=== PATIENT | female | born 1975 | race Caucasian/White ===

== ENCOUNTER 2021-10-23 17:19 | Emergency (ER) | payer OTHER ==
[~2021-10-23] VITALS: Ht 172.7 cm; Wt 81.0 kg
[2021-10-23 18:00] VITALS: BP 135/78
[2021-10-23] MEDS ORDERED: LIDOCAINE 1%/EPI 1:100,000 20 ML VIAL. IJ ONE (18:15)
[2021-10-23] MEDS ORDERED: IBUPROFEN 600 MG TABLET. PO ONE (18:30)
[2021-10-23] MEDS ORDERED: ACETAMINOPHEN 500 MG TABLET PO ONE (18:30)
[2021-10-23] MEDS ORDERED: DIPH,PERTUSS(ACELL),TET VAC/PF 0.5 ML SYRINGE. VAX IM ONE (18:30)
--- NOTE | 2021-10-23 18:40 | PHYS DOC ---
Past History Past Medical History: No Pertinent History (NEMESIO HAINES APRN) Past Surgical History: No Surgical History (NEMESIO HAINES APRN) Alcohol Use: Rarely Drug Use: None (NEMESIO HAINES APRN) Adult General Chief Complaint Chief Complaint: LACERATION/AVULSION HPI HPI Patient is a 46-year-old female who presents to the emergency department reporting she incidentally head butted a horse and suffered a laceration to the right side of her head. Patient reports this happened approximately 1730 today. Patient reports her last tetanus immunization was greater than 5 years ago. Denies loss of consciousness, denies dizziness, syncopal or near syncopal epis odes. Patient denies head or neck pain. Patient denies visual disturbances. Patient denies other physical complaints or physical concerns. (NEMESIO HAINES APRN) Review of Systems Review of Systems 14 body systems of review of systems have been reviewed. See HPI for pertinent positives and negative responses, otherwise all other systems are negative, nonpertinent or noncontributory. Constitutional: Negative except as outlined in HPI above. Skin: Negative except as outlined in HPI above. Eyes: Negative except as outlined in HPI above. HENT: Negative except as outlined in HPI above. Respiratory: Negative except as outlined in HPI above. Cardiovascular: Negative except as outlined in HPI above. GI: Negative except as outlined in HPI above. : Negative except as outlined in HPI above. Musculoskeletal: Negative except as outlined in HPI above. Integument: Negative except as outlined in HPI above. Neurologic: Negative except as outlined in HPI above. Endocrine: Negative except as outlined in HPI above. Lymphatic: Negative except as outlined in HPI above. Psychiatric: Negative except as outlined in HPI above. (NEMESIO HAINES APRN) Current Medications Current Medications Current Medications Medications (Trade) Dose Ordered Sig/Juliana Start Time Stop Time Status Last Admin Dose Admin Acetaminophen (Tylenol) 1,000 mg 1X ONCE 10/23/21 18:30 10/23/21 18:31 UNV Diphtheria/ Pertussis/Tetanus Vacc (ADACEL TDap SYRINGE) 0.5 ml ONCE ONCE 10/23/21 18:30 10/23/21 18:31 UNV Ibuprofen (Motrin) 600 mg 1X ONCE 10/23/21 18:30 10/23/21 18:31 UNV Lidocaine/ Epinephrine (Xylocaine 1%-Epi 1:100,000) 20 ml 1X ONCE 10/23/21 18:15 10/23/21 18:25 DC (NEMESIO HAINES APRN) Allergies Allergies Allergies Coded Allergies Type Severity Reaction Last Updated Verified NSAIDS (Non-Steroidal Anti-Inflamma Allergy Severe 10/23/21 Yes (NEMESIO HAINES APRN) Physical Exam Physical Exam Constitutional: Well developed, well nourished, no acute distress, non-toxic appearance. 46-year-old female in no apparent distress. HENT: Normocephalic, no gamez sign, no raccoon eyes, there is a 3 cm laceration to the right parietal scalp, bleeding is controlled, minor contusion. Bilateral TMs patent, intact, within normal limits. No malocclusion, no drooling, no trismus. Eyes: Conjunctiva normal, no discharge. Neck: Normal range of motion, no stridor. No midline spinal tenderness, full range of motion without tenderness. Cardiovascular: No cyanosis appreciated, distal cap refill less than 2 seconds. Lungs & Thorax: Patient is in no respiratory distress, no audible adventitious lung sounds appreciated. Abdomen: Nontender, no abnormalities noted. Skin: Warm, dry, no erythema, no rash. Back: No tenderness, no deformities. Extremities: No tenderness, no cyanosis, no clubbing, ROM intact, no edema. Neurologic: Alert and oriented X 3, normal motor function, normal sensory function, no focal deficits noted. Psychologic: Affect normal, judgement normal, mood normal. (NEMESIO HAINES APRN) Current Patient Data Vital Signs Vital Signs Date Time Temp Pulse Resp B/P (MAP) Pulse Ox O2 Delivery O2 Flow Rate FiO2 10/23/21 18:00 98.2 78 16 135/78 (97) 99 (NEMESIO HAINES APRN) EKG EKG [] (NEMESIO HAINES APRN) Radiology/Procedures Radiology/Procedures [] (NEMESIO HAINES APRN) Heart Score C/O Chest Pain: No Risk Factors: Risk Factors: DM, Current or recent (<one month) smoker, HTN, HLP, family history of CAD, obesity. Risk Scores: Risk Factors: DM, Current or recent (<one month) smoker, HTN, HLP, family history of CAD, obesity. (NEMESIO HAINES APRN) Course & Med Decision Making Course & Med Decision Making Pertinent Labs and Imaging studies reviewed. (See chart for details) 46-year-old female, vital signs reviewed, presents emerged from concerning scalp laceration after head butting her young horse by accident at approximately 1730 today. Pain is tetanus immunization is not up-to-date, will bring up-to-date today in the emergency department with Adacel/Tdap. See laceration repair note. Will apply ice pack, Tylenol for pain. Discussed with patient suture care and removal in 7 to 10 days. Return to ER precautions or concerns, follow-up with primary care for suture removal, patient gave verbal understanding of and is amenable to ED discharge planning. Discussed with the patient all findings and diagnostic testing as well as the need to follow-up with their primary care provider for further evaluation and treatment or return to the ED if any new or worsening symptoms. Strict return precautions were also discussed at length, the patient voiced understanding and agreement with the discharge planning. The patient was nontoxic in appearance, in no apparent distress, and hemodynamically stable at the time of disposition. (NEMESIO HAINES APRN) Dragon Disclaimer Dragon Disclaimer This electronic medical record was generated, in whole or in part, using a voice recognition dictation system. (NEMESIO HAINES APRN) Laceration Repair Lac Repair Indication: Scalp laceration Time: 1840 Confirmed: Patient, procedure, side, and site correct. Consent: Patient, has given verbal consent. Description/repair Procedure: The patient was placed in the appropriate position and anesthesia around the achieved with 4 cc 1% lidocaine with epinephrine . The area was then cleansed with Betadine solution. The laceration was vigorously irrigated with 500 cc normal saline, explored for foreign bodies or debris, no foreign bodies or debris appreciated. The laceration was then closed with 3 dermal christoph, the wound area was then dressed with bacitracin. Complexity: Single layer. Post procedure exam: Circulation, motor, sensory examination intact, bleeding controlled. Total repaired wound length: 3 cm. Other Items: The patient tolerated the procedure well. Complications: There were no complications. Performed by: Self, Nemesio Haines, CLASSIFICATION CLERK-C Supervision: Dr. Dubose was present for consult regarding the critical aspects of the procedure including closure and post procedure exam. Total time: 10 minutes. (NEMESIO HAINES APRN) Departure Departure: Impression: Primary Impression: Scalp laceration Additional Impression: Need for Tdap vaccination Disposition: HOME / SELF CARE / HOMELESS Condition: GOOD Referrals: KATRINA CARLISLE (PCP) Patient Instructions: Laceration Care, Adult, Staple Wound Closure, [id number] Additional Instructions: You were seen here in the emergency department today for a laceration of your scalp after bumping heads with your horse. Your tetanus immunization was brought up-to-date today in the emergency department with a medication called Adacel Tdap, please update your immunization records accordingly. You have 3 christoph closing your laceration, keep clean and dry, you may apply antibiotic ointment daily, you may take daily showers and cleanse with soap and water, please have these christoph removed in 7 to 10 days, you may call your primary care physician Dr. Katrina Carlisle for an appointment to have staple removal, please watch for signs and symptoms of infection, return to the emergency department for worsening symptoms or other concerns. You may use Tylenol for discomfort. Thank you for visiting our Emergency Department. It was a pleasure taking care of you today in the emergency department and we appreciate you trusting us with your care. If any additional problems come up don't hesitate to return to visit us. Please follow up with your primary care provider so they can plan additional care if needed and know about the problem that you had. If symptoms worsen come back to the Emergency Department. Any concerning symptoms that start such as chest pain, shortness of air, weakness or numbness on one s jorge of the body, running high fevers or any other concerning symptoms return to the ER. Attending Signature Attending Signature I have participated in the care of this patient and I have reviewed and agree with all pertinent clinical information above including history, exam, and recommendations. (ELDER DUBOSE MD) Problem Qualifiers Primary Impression: Scalp laceration Encounter type: initial encounter Qualified Codes: S01.01XA - Laceration without foreign body of scalp, initial encounter NEMESIO HAINES APRN Oct 23, 2021 18:40 ELDER DUBOSE MD Oct 24, 2021 10:21
[2021-10-23] MEDS ORDERED: BACITRACIN ZINC TOPICAL OINT PACKET. TP ONE (19:00)
== END 2021-10-23 19:06 | disposition home or self-care (01) ==
LOC: ER 17:19
DX: S01.01XA Laceration without foreign body of scalp, initial encounter (principal); Z88.6 Allergy status to analgesic agent; W22.8XXA Striking against or struck by other objects, initial encounter; Y93.89 Activity, other specified; Y92.89 Other specified places as the place of occurrence of the external cause; Y99.8 Other external cause status
CPT/HCPCS: 12002; 90471; 90715; 99283